=== PATIENT | male | born 1950 | race Caucasian/White ===

== ENCOUNTER 2021-03-13 11:51 | Emergency (ER) | payer OTHER, MEDICARE ==
[~2021-03-13] VITALS: Ht 177.8 cm; Wt 84.1 kg
[2021-03-13 11:59] VITALS: BP 121/74
[2021-03-13] MEDS ORDERED: CEPH-585 PO (12:40)
[2021-03-13] MEDS ORDERED: TETanus/Pertussis (Acell)/Diphther VAC/PF (Tdap-Adult) 0.5ml syringe IMVAC ONE (12:45)
== END 2021-03-13 13:15 | disposition home or self-care (01) ==
LOC: ER 11:52
DX: S51.811A Laceration without foreign body of right forearm, initial encounter (principal); Z88.2 Allergy status to sulfonamides; Z88.8 Allergy status to other drugs, medicaments and biological substances; Z79.2 Long term (current) use of antibiotics; Z79.01 Long term (current) use of anticoagulants; W25.XXXA Contact with sharp glass, initial encounter; Y93.89 Activity, other specified; Y92.89 Other specified places as the place of occurrence of the external cause; Y99.8 Other external cause status
CPT/HCPCS: 12002; 12032; 90471; 90715; 99283; 99284

== ENCOUNTER 2021-04-08 11:03 | Emergency (ER) | payer OTHER, MEDICARE ==
[~2021-04-08] VITALS: Ht 177.8 cm; Wt 86.4 kg
[~2021-04-08 11:03] MED LIST: CEPH-585 PO
[2021-04-08] MEDS ORDERED: normal saline 1000ML IV soln IVB ONE (11:20)
[2021-04-08] MEDS ORDERED: LIDOcaine 1% W/epiNEPHrine 1:100,000 20ml vial SQ ONE (11:30)
[2021-04-08 12:48] VITALS: BP 127/60
== END 2021-04-08 12:50 | disposition home or self-care (01) ==
LOC: ER 11:04
DX: S51.011A Laceration without foreign body of right elbow, initial encounter (principal); Z88.2 Allergy status to sulfonamides; Z88.5 Allergy status to narcotic agent; Z88.8 Allergy status to other drugs, medicaments and biological substances; Z79.2 Long term (current) use of antibiotics; W45.8XXA Other foreign body or object entering through skin, initial encounter; Y93.89 Activity, other specified; Y92.89 Other specified places as the place of occurrence of the external cause; Y99.8 Other external cause status
CPT/HCPCS: 12001; 96360; 99283; J7030

== ENCOUNTER 2021-04-10 06:06 | Emergency (ER) | payer OTHER, MEDICARE ==
[~2021-04-10] VITALS: Ht 177.8 cm; Wt 84.1 kg
[2021-04-10] MEDS ORDERED: methylPREDNISolone sod succ 125mg/2ml vial IV ONE (06:15)
[2021-04-10] MEDS ORDERED: PRED20TA PO (07:04)
[2021-04-10] MEDS ORDERED: methylPREDNISolone sod succ 125mg/2ml vial IM ONE (07:05)
[2021-04-10 07:11] VITALS: BP 131/78
== END 2021-04-10 09:32 | disposition home or self-care (01) ==
LOC: ER 06:06
DX: L25.8 Unspecified contact dermatitis due to other agents (principal); T50.995A Adverse effect of other drugs, medicaments and biological substances, initial encounter; I99.9 Unspecified disorder of circulatory system; Z88.2 Allergy status to sulfonamides; Z88.8 Allergy status to other drugs, medicaments and biological substances; Z79.2 Long term (current) use of antibiotics; Y92.89 Other specified places as the place of occurrence of the external cause
CPT/HCPCS: 96374; 99283; J2930